=== PATIENT | female | born 1985 | race Caucasian/White ===

== ENCOUNTER 2019-07-15 08:04 | Day surgery (SDC) | payer OTHER ==
[~2019-07-15] VITALS: Ht 157.5 cm; Wt 89.4 kg
[~2019-07-15 08:04] MED LIST: ALIG10.5 PO; BUSP5TA PO; NS 1,000 ML IV ONE; OMEP40CA97 PO; PREV1CAP PO
[2019-07-15] MEDS ORDERED: propofoL 200 MG/20 ML VIAL As Ordered ONE (09:17)
[2019-07-15] MEDS ORDERED: LIDOCAINE 2% INJ 100 MG/5 ML SDV (FOR ANES.) As Ordered ONE (09:17)
--- NOTE | 2019-07-15 09:24 | ROOR ---
Patient Name: Chantelle Laboy Procedure Date: 07/15/2019 8:59 AM Date of : 1985 Age: 33 Room: [facility] Gender: Female Note Status: Finalized Procedure: Upper Endoscopy + Biopsies Indications: Heartburn, Exclusion of Wright's esophagus Providers: Hunter Arevalo MD Referring MD: JUAN PABLO ALMEIDA MD Requesting Provider: Medicines: Monitored Anesthesia Care Complications: No immediate complications. Procedure: Pre-Anesthesia Assessment: - The heart rate, respiratory rate, oxygen saturations, blood pressure, adequacy of pulmonary ventilation, and response to care were monitored throughout the procedure. The Endoscope was introduced through the mouth, and advanced to the second part of duodenum. The upper GI endoscopy was accomplished without difficulty. The patient tolerated the procedure well. Findings: The Z-line was irregular and was found 30 cm from the incisors. Multiple biopsies were obtained with cold forceps for evaluation to rule out Wright's Esophagus randomly at the gastroesophageal junction. A small hiatal hernia was present. Localized mild inflammation characterized by congestion (edema) and erythema was found in the stomach. Biopsies were taken with a cold forceps for Helicobacter pylori testing. The exam was otherwise without abnormality. Evidence of a gastric bypass was found. A gastric pouch with a small size was found. The exam was otherwise without abnormality. Impression: - Z-line irregular, 30 cm from the incisors. - Small hiatal hernia. - Mucosal changes suspicious for gastritis. Biopsied. - The examination was otherwise normal. - Gastric bypass with a small-sized pouch. - The examination was otherwise normal. - Multiple biopsies were obtained at the gastroesophageal junction. Recommendation: - Patient has a contact number available for emergencies. The signs and symptoms of potential delayed complications were discussed with the patient. Return to normal activities tomorrow. Written discharge instructions were provided to the patient. - High fiber diet. - Discharge patient to home. - Follow an antireflux regimen. - Continue present medications. - Await pathology results. - Telephone GI clinic for pathology results in 1 week. - Return to referring physician. - The findings and recommendations were discussed with the patient's family. Hunter Arevalo MD Hunter Arevalo MD 07/15/2019 9:23:44 AM Electronically signed by Hunter Arevalo MD Number of Addenda: 0 Note Initiated On: 07/15/2019 8:59 AM Estimated Blood Loss: Estimated blood loss: none.
--- NOTE | 2019-07-15 09:39 | ROOR ---
Patient Name: Chantelle Laboy Procedure Date: 07/15/2019 9:00 AM Date of : 1985 Age: 33 Room: [facility] Gender: Female Note Status: Finalized Procedure: Total Colonoscopy to Cecum Indications: Colon cancer screening in patient at increased risk: Colorectal cancer in mother Providers: Hunter Arevalo MD Referring MD: JUAN PABLO ALMEIDA MD Requesting Provider: Medicines: Monitored Anesthesia Care Complications: No immediate complications. Procedure: Pre-Anesthesia Assessment: - The heart rate, respiratory rate, oxygen saturations, blood pressure, adequacy of pulmonary ventilation, and response to care were monitored throughout the procedure. The Colonoscope was introduced through the anus and advanced to the cecum, identified by appendiceal orifice and ileocecal valve. The colonoscopy was performed without difficulty. The patient tolerated the procedure well. The quality of the bowel preparation was fair. Findings: The perianal and digital rectal examinations were normal. Non-bleeding internal hemorrhoids were found during retroflexion. The hemorrhoids were small and Grade I (internal hemorrhoids that do not prolapse). No other significant abnormalities were identified in a careful examination of the remainder of the colon. The exam was otherwise without abnormality on direct and retroflexion views. Impression: - Preparation of the colon was fair. - Non-bleeding internal hemorrhoids. - The examination was otherwise normal on direct and retroflexion views. - No specimens collected. - The exam was otherwise normal to the cecum. Recommendation: - Patient has a contact number available for emergencies. The signs and symptoms of potential delayed complications were discussed with the patient. Return to normal activities tomorrow. Written discharge instructions were provided to the patient. - High fiber diet. - Discharge patient to home. - Continue present medications. - Repeat colonoscopy in 5 years for screening purposes. - Return to referring physician. - The findings and recommendations were discussed with the patient's family. Hunter Arevalo MD Hunter Arevalo MD 07/15/2019 9:38:41 AM Electronically signed by Hunter Arevalo MD Number of Addenda: 0 Note Initiated On: 07/15/2019 9:00 AM Estimated Blood Loss: Estimated blood loss: none.
[2019-07-15 10:20] VITALS: BP 138/78
== END 2019-07-15 10:29 | disposition home or self-care (01) ==
LOC: M OPP 08:04
PROVIDERS: ATTEND Internal Medicine Gastroenterology
DX: Z12.11 Encounter for screening for malignant neoplasm of colon (principal); Z80.0 Family history of malignant neoplasm of digestive organs; K64.0 First degree hemorrhoids; K22.8 Other specified diseases of esophagus; K44.9 Diaphragmatic hernia without obstruction or gangrene; K31.89 Other diseases of stomach and duodenum; Z98.84 Bariatric surgery status; R12 Heartburn; Z79.899 Other long term (current) drug therapy

== ENCOUNTER → 2020-01-05 | Outpatient (CLI) | payer OTHER ==
[~2020-01-05] MED LIST changes: -NS 1,000 ML IV ONE
--- NOTE | 2020-01-05 10:34 | REP ---
REASON: Elevated liver enzymes and leung thrombocytopenia. PRIORS: None. Patient is status post cholecystectomy. There is evidence of hepatomegaly. There are no liver masses. The hepatic parenchymal echo pattern is within normal limits. There is no intrahepatic or extrahepatic ductal dilatation. The common bowel duct measures 4 mm. The pancreas could not be imaged secondary to the patient's intestinal gas pattern. The maximal splenic dimension is 15.7 cm which is upper limits of normal to somewhat enlarged depending on the patient's body habitus. Right kidney 10.9 x 5.7 x 3.4 cm, left 11.5 x 6.7 x 4.6 cm. The kidneys are unremarkable in appearance. There is no free fluid in the abdomen. IMPRESSION: Evidence of mild hepatosplenomegaly. Correlate clinically. Obtain liver spleen scan if clinically relevant.
== END ==
LOC: M WHC 07:02
PROVIDERS: ATTEND Internal Medicine Hematology & Oncology
DX: D50.9 Iron deficiency anemia, unspecified (principal); D69.6 Thrombocytopenia, unspecified

== ENCOUNTER → 2020-05-26 | Outpatient (CLI) | payer OTHER ==
[~2020-05-26] MED LIST changes: +LIDOCAINE 1% MDV 20ML VIAL As Ordered ONE; +TUMS750C5 PO
[2020-05-26 09:45] VITALS: BP 132/85
[2020-05-26 10:24] LABS: BASO % 0.2 % (0.0-1.0); EOS % 0.2 % (0.0-3.0); HEMATOCRIT 40.6 % (36.0-47.0); LYMPH # 1.5 10^3/uL (1.5-5.0); LYMPH % 34.7 % (24.0-44.0); MEAN CORPUSCULAR HEMOGLOBIN 29.1 pg (27.0-33.0); MEAN CORPUSCULAR VOLUME 90.8 fl (80.0-96.0); MONO # 0.2 10^3/uL (0.0-0.8); NEUTROPHILS # 2.6 10^3/uL (1.5-8.5); NEUTROPHILS % 59.7 % (36.0-66.0); RED BLOOD COUNT 4.47 10^6/uL (4.00-5.40); WHITE BLOOD COUNT 4.4 10^3/uL (4.0-10.0)
[2020-05-26 10:26] LABS: PLATELET COUNT, AUTOMATED 75 10^3/uL (150-450)
--- NOTE | 2020-05-26 17:10 | REP ---
INDICATION: THROMBOCYTOPENIA. COMPARISON: None. TECHNIQUE: The procedure was performed under the direct supervision of Dr. Casper. The risks and benefits of the procedure were explained to the patient and informed consent was obtained. The right iliac crest was localized using CT guidance. The skin was prepped and draped in a sterile fashion. 1% lidocaine was used as a local anesthetic. Using CT guidance an 11 gauge bone biopsy needle system was inserted and 12 cc of aspirate and 1 core were obtained. The patient tolerated the procedure well and there were no immediate complications. FINDINGS: None IMPRESSION: Technically successful CT-guided bone marrow biopsy. <Electronically signed by Jim Kirk > 05/26/20 [id number] <Electronically signed by Giancarlo Casper > 05/26/20 [id number]
== END ==
LOC: M IRPRO 08:29
PROVIDERS: ATTEND Internal Medicine Hematology & Oncology
DX: D69.6 Thrombocytopenia, unspecified (principal); E66.9 Obesity, unspecified

== ENCOUNTER → 2021-01-12 | Outpatient (CLI) | payer OTHER ==
[~2021-01-12] MED LIST changes: +3ML25MIS SC; +B-1225002 SL; +COVI100V IM; +OMEP40CA4 PO; -OMEP40CA97 PO; +PHYS1KIT3 IM
[2021-01-12 10:16] LABS: HEMATOCRIT 38.6 % (36.0-47.0); HEMOGLOBIN 12.5 g/dl (12.0-15.5); MEAN CORPUSCULAR HEMOGLOBIN 27.7 pg (27.0-33.0); MEAN CORPUSCULAR HGB CONC 32.4 g/dl (32.0-36.5); MEAN CORPUSCULAR VOLUME 85.4 fl (80.0-96.0); RED BLOOD COUNT 4.52 10^6/uL (4.00-5.40); WHITE BLOOD COUNT 4.9 10^3/uL (4.0-10.0)
[2021-01-12 10:19] LABS: PLATELET COUNT, AUTOMATED 88 10^3/uL (150-450)
[2021-01-12 12:00] VITALS: BP 136/80
--- NOTE | 2021-01-12 16:19 | REP ---
INDICATION: THROMBOCYTOPENIA, IRON DEFICIENCY. COMPARISON: None. TECHNIQUE: Performed under the direct supervision of Dr. Ramirez. The risks and benefits of the procedure were explained to the patient and informed consent was obtained. The left iliac wing was localized using CT guidance. The skin was prepped and draped in a sterile fashion. 9 cc of 1% lidocaine was used as a local anesthetic. Using CT guidance, an 11 gauge bone marrow biopsy needle system was inserted. 9 mL of marrow fluid was withdrawn. One core biopsy sample was then obtained. Estimated blood loss: Less than 1 mL The patient tolerated the procedure well and there were no immediate complications. After the appropriate amount to monitor convalescence the patient was discharged from the department. FINDINGS: None IMPRESSION: CT-guided left iliac bone marrow biopsy. <Electronically signed by Jim Kirk > 01/12/21 1607 <Electronically signed by Tyrell Ramirez > 01/12/21 1612
== END ==
LOC: M IRPRO 09:45
PROVIDERS: ATTEND Internal Medicine Medical Oncology
DX: D69.6 Thrombocytopenia, unspecified (principal); D50.9 Iron deficiency anemia, unspecified

== ENCOUNTER → 2021-01-24 | Outpatient (CLI) | payer OTHER ==
[~2021-01-24] MED LIST changes: -LIDOCAINE 1% MDV 20ML VIAL As Ordered ONE
[2021-01-24 18:11] LABS: BASO % 0.5 % (0.0-1.0); EOS % 0.3 % (0.0-3.0); HEMATOCRIT 42.4 % (36.0-47.0); HEMOGLOBIN 13.4 g/dl (12.0-15.5); LYMPH # 1.2 10^3/uL (1.5-5.0); LYMPH % 32.2 % (24.0-44.0); MEAN CORPUSCULAR HEMOGLOBIN 27.3 pg (27.0-33.0); MEAN CORPUSCULAR HGB CONC 31.6 g/dl (32.0-36.5); MEAN CORPUSCULAR VOLUME 86.4 fl (80.0-96.0); MONO # 0.3 10^3/uL (0.0-0.8); MONO % 8.2 % (2.0-8.0); NEUTROPHILS # 2.2 10^3/uL (1.5-8.5); NEUTROPHILS % 58.5 % (36.0-66.0); PLATELET COUNT, AUTOMATED 76 10^3/uL (150-450); RED BLOOD COUNT 4.91 10^6/uL (4.00-5.40); WHITE BLOOD COUNT 3.8 10^3/uL (4.0-10.0)
[2021-01-24 18:28] LABS: ALBUMIN 4.3 GM/DL (3.2-5.2); ALT/SGPT 21 U/L (12-78); BILIRUBIN,TOTAL 0.4 MG/DL (0.2-1.0); BLOOD UREA NITROGEN 10 MG/DL (7-18); CALCIUM LEVEL 9.1 MG/DL (8.5-10.1); CARBON DIOXIDE LEVEL 25 MEQ/L (21-32); CHLORIDE LEVEL 105 MEQ/L (98-107); CREATININE FOR GFR 0.82 MG/DL (0.55-1.30); FERRITIN 80 NG/ML (8-252); GLOMERULAR FILTRATION RATE > 60.0 (>60); GLUCOSE, FASTING 89 MG/DL (70-100); IRON (FE) 25 UG/DL (50-170); PERCENT SATURATION 7.2 % (13.2-45.0); SODIUM LEVEL 137 MEQ/L (136-145); TOTAL IRON BINDING CAPACITY 347 UG/DL (250-450)
[2021-01-24 18:36] LABS: FOLATE 22.4 NG/ML; VITAMIN B12 LEVEL 858 PG/ML
== END ==
LOC: M LAB 17:29
PROVIDERS: ATTEND Internal Medicine Medical Oncology
DX: D69.6 Thrombocytopenia, unspecified (principal)

== ENCOUNTER → 2021-01-28 | Outpatient (CLI) | payer OTHER ==
[~2021-01-28] MED LIST changes: +GASTROGRAFIN SOLUTION 30ML (Q9963) ONE; +ISOVUE-370 76% 100ML VIAL ONE
== END ==
LOC: M PLAIMG 11:44
PROVIDERS: ATTEND Internal Medicine Medical Oncology
DX: R16.2 Hepatomegaly with splenomegaly, not elsewhere classified (principal); Z98.84 Bariatric surgery status; Z90.49 Acquired absence of other specified parts of digestive tract
CPT/HCPCS: 74177; Q9963; Q9967

== ENCOUNTER → 2021-04-13 | Outpatient (CLI) | payer OTHER ==
[~2021-04-13] MED LIST changes: -GASTROGRAFIN SOLUTION 30ML (Q9963) ONE; -ISOVUE-370 76% 100ML VIAL ONE
== END ==
LOC: M LABSMTC 10:43
PROVIDERS: ATTEND Pediatrics
DX: Z20.822 Contact with and (suspected) exposure to COVID-19 (principal)
CPT/HCPCS: C9803; U0003